=== PATIENT | female | born 1995 ===

== ENCOUNTER 2025-07-03 09:10 | Observation (INO) ==
--- NOTE | 2025-06-03 13:58 | PAT Medication Instructions ---
Medication Instructions Date of Service June 03, 2025 Home Medications bupropion HCl 300 mg 24 hr tablet, extended release (Wellbutrin XL) 300 mg PO QAM metformin 500 mg tablet 500 mg PO HS hydroxyzine HCl 10 mg tablet 10 mg PO BID PRN Anxiety levothyroxine 88 mcg tablet 88 mcg PO QAM phentermine 37.5 mg tablet 37.5 mg PO DAILY DO NOT take the morning of surgery hydroxyzine HCl 10 mg tablet 10 mg PO BID PRN Anxiety Take morning of surgery With a small sip of water, OTHERWISE NOTHING TO EAT OR DRINK AFTER MIDNIGHT: bupropion HCl 300 mg 24 hr tablet, extended release (Wellbutrin XL) 300 mg PO QAM levothyroxine 88 mcg tablet 88 mcg PO QAM Take evening before surgery metformin 500 mg tablet 500 mg PO HS hydroxyzine HCl 10 mg tablet 10 mg PO BID PRN Anxiety (if needed) STOP 5 days prior to surgery phentermine 37.5 mg tablet 37.5 mg PO DAILY Other Notes If you have any questions please call us at [phone] or [phone] or [phone] or [phone]
--- NOTE | 2025-06-11 12:42 | Anesthesiology Consultation ---
Date of Service June 11, 2025 Assessment & Plan (1) Encounter for pre-operative examination: Chart Review Chart Review: Acceptable Risk for Surgery and Patient seen in Pre Admission Testing - Check BSG AM DOS - Check test AM DOS Pt currently scheduled as 23 hours observation. If surgeon decides to change patient to Same Day Joint, patient would be acceptable risk for TKA, pending patient is motivated, has good support and surgeon's office completes [facility] Program preop requirements. Per PAT appt on 06/11/25, no recent illness/disease exposures, illness related symptoms, or recent illness/disease positive tests. Will leave to surgeon's discretion if preop Covid testing needed Teaching & Discussion Pre-Anesthesia Teaching/Discussion Notes: Instructed NPO after midnight before surgery,except medications with 15 cc of water. Medication instructions provided according to the PAT guidelines. History Surgery Operation Date: 07/03/25 12:00 Proposed Procedures p Robotic Assisted Left Total Knee Arthroplasty - Roly Lentz DO Operation Date: 07/03/25 13:00 Proposed Procedures p Robotic Assisted Left Total Knee Arthroplasty - Roly Lentz DO Height/Weight Height: 5 ft 3 in Weight: 83.2 kg Allergies Allergy/AdvReac Type Severity Reaction Status Date / Time Penicillins Allergy Unknown Hives Verified 06/02/25 08:27 sulfamethoxazole Allergy Unknown Hives Verified 06/02/25 08:27 [From Bactrim] trimethoprim [From Bactrim] Allergy Unknown Hives Verified 06/02/25 08:27 Medications Home Medications Medication Instructions Recorded Confirmed Last Taken bupropion HCl 300 mg 24 hr tablet, 300 mg PO QAM 04/24/25 06/02/25 Unknown extended release (Wellbutrin XL) metformin 500 mg tablet 500 mg PO HS 04/24/25 06/02/25 Unknown hydroxyzine HCl 10 mg tablet 10 mg PO BID PRN Anxiety 06/02/25 06/02/25 Unknown levothyroxine 88 mcg tablet 88 mcg PO QAM 06/02/25 06/02/25 Unknown phentermine 37.5 mg tablet 37.5 mg PO DAILY 06/02/25 06/02/25 Unknown Past Medical History Medical History (Updated 06/11/25 @ 12:55 by Bryanna Logan PA-C) Acid reflux occ/dietary controlled/no meds. Anxiety Depression History of anesthesia reaction - with epidural for childbirth "oxygen dipped" required supplemental oxygen for that time per pt (did have vaginal delivery) - no issues with surgeries (has not had any other epidurals) History of COVID-19 hx 2020 and maybe 2021 per pt. no hx hospitalization. no current issues Hypothyroidism Liver cyst per pt decreasing in size, monitored every 2 yrs. Last monitored 2022. Pre-diabetes Exercise / Class Metabolic Activity II 4-5 Yardwork/Stairs/Walk up hill (one flight of stairs - no chest pain or SOB ) Past Family History Family History Other No family history of adverse response to anesthesia Past Surgical History Surgical History History of reconstruction of anterior cruciate ligament tear left History of surgery had nerve block through pain managment , left knee. [place] teeth removed hx Past Anesthesia History No Hx of Anesthesia Complications (with exception to SOB/low oxygen with epidural with childbirth ) and No Family Hx of Anesthesia Complications History of PONV No Hx of PONV and Hx of Motion Sickness Social History Smoking Status: Never smoker Do You Dip or Chew Tobacco: No alcohol intake frequency: holidays/special occasions only Hx Substance Use: No substance use type: does not use Review of Systems - Occ snoring - no witnessed apnea - no hx of sleep study Patient denies chest pain, shortness of breath, dyspnea on exertion, cough, wheezing, palpitations. No hx of seizures, stroke, [place]. No hx of blood clots or blood transfusions Physical Exam Vital Signs VITALS BP 115/79 P 79 TEMP 98.0 SP02 98% RESP 16 Constitutional no acute distress ENMT Mouth: no TMJ clicking Thyromental Distance: > or= 3.5 Finger Breadths (3.5) Mallampati Class: III Neck neck extension not limited Respiratory normal respiratory effort; no respiratory distress Auscultation: lungs clear to auscultation bilaterally; no wheezes Cardiovascular Rate/Rhythm: regular rate and regular rhythm Heart Sounds: no murmur Vessels: no carotid bruit Musculoskeletal Spine: no pain with cervical ROM Extremities: extremities normal to inspection Psychiatric Orientation: alert Lab Results Anesthesia Preop Results Results Anesthesia Widget: WBC 5.83 K/ul (4.8-10.8) 06/11/25 Hgb 13.4 g/dl (12.0-16.0) 06/11/25 Hct 38.1 % (37.0-47.0) 06/11/25 Plt 296 K/uL (130-400) 06/11/25 Na 140 mmol/L (136-145) 06/11/25 K 3.6 mmol/L (3.5-5.1) 06/11/25 Cl 107 mmol/L (98-107) 06/11/25 CO2 24 mmol/L (21-32) 06/11/25 BUN 14 mg/dl (6-23) 06/11/25 Creat 0.64 mg/dl (0.6-1.2) 06/11/25 Glucose Level 104 mg/dl (70-99(Fasting)) H 06/11/25 PT 10.8 Seconds (9.0-12.0) 06/11/25 PTT 26 Seconds (21-31) 06/11/25 INR 1.0 (0.9-1.1) 06/11/25 HA1c 4.8 % (4.5-5.6) 06/11/25 Blood Type O Positive 06/11/25 Antibody Screen NEGATIVE 06/11/25 Testing Electrocardiogram Date: 06/11/25 NSR with sinus arrhythmia at 77bpm Normal EKG per cardio Chest X-Ray Date: 06/11/25 Findings: + NAD
--- NOTE | 2025-07-02 12:12 | History & Physical Report ---
Date of Service July 02, 2025 Assessment & Plan (1) Knee osteoarthritis: We will proceed with a left total knee arthroplasty. Postoperatively, she will be started on aspirin for DVT prophylaxis and kept overnight in the hospital for postop medical management. She plans to have occupational therapy at her house after discharge. History of Present Illness Chief Complaint: Osteoarthritis of the left knee. Primary Care Provider: NO PCP Bridgette is a pleasant 30-year-old female who has been dealing with chronic, increasing left knee pain. She initially tore her ACL about 5 years ago. She underwent an ACL reconstruction in 2000. She has not done well postoperatively. She has had progressive lateral compartmental arthritis. She has been treated by another provider. She has had multiple injections. Unfortunately, the injections are not helping. She is really struggling with the left knee. The valgus deformity is becoming worse. She has elected proceed with a left total knee arthroplasty. Allergies Allergy/AdvReac Type Severity Reaction Status Date / Time Penicillins Allergy Unknown Hives Verified 06/02/25 08:27 sulfamethoxazole Allergy Unknown Hives Verified 06/02/25 08:27 [From Bactrim] trimethoprim [From Bactrim] Allergy Unknown Hives Verified 06/02/25 08:27 Home Medications Medication Instructions Recorded Confirmed Type bupropion HCl 300 mg 24 hr tablet, 300 mg PO QAM 04/24/25 06/02/25 History extended release (Wellbutrin XL) metformin 500 mg tablet 500 mg PO HS 04/24/25 06/02/25 History hydroxyzine HCl 10 mg tablet 10 mg PO BID PRN Anxiety 06/02/25 06/02/25 History levothyroxine 88 mcg tablet 88 mcg PO QAM 06/02/25 06/02/25 History phentermine 37.5 mg tablet 37.5 mg PO DAILY 06/02/25 06/02/25 History sertraline 50 mg tablet (Zoloft) 50 mg PO DAILY 06/29/25 06/29/25 History Past Med/Surg History Problem List Encounter for pre-operative examination Knee osteoarthritis Medical History History of anesthesia reaction - with epidural for childbirth "oxygen dipped" required supplemental oxygen for that time per pt (did have vaginal delivery) - no issues with surgeries (has not had any other epidurals) Anxiety History of COVID-19 hx 2020 and maybe 2021 per pt. no hx hospitalization. no current issues Acid reflux occ/dietary controlled/no meds. Liver cyst per pt decreasing in size, monitored every 2 yrs. Last monitored 2022. Hypothyroidism Pre-diabetes Depression Surgical History History of surgery had nerve block through pain managment , left knee. [place] teeth removed hx History of reconstruction of anterior cruciate ligament tear left Family History Other No family history of adverse response to anesthesia Social History Smoking Status: Never smoker Do You Dip or Chew Tobacco: No; Hx Substance Use: No Preferred Language: Frisian Communication Ability: Effective Ultrasound Supervisor Required: No Beliefs That Will Affect Care: None Current Living Situation: Spouse and Family Feels Safe at Home: Yes Assistive Devices: Contacts and Glasses Review of Systems All systems reviewed & are unremarkable except as noted in HPI & below. Physical Exam On physical exam the left knee, she has slight valgus deformity. Tenderness palpation of the distal lateral femoral condyle and over the lateral joint line.. Constitutional WD/WN, vitals as above Eyes PERRL, conjunctivae normal, anicteric sclerae ENMT external ear and nose normal, oropharynx normal Neck trachea midline, no thyromegaly Respiratory normal respiratory effort Cardiovascular RRR, no murmur, no edema Gastrointestinal (Abdomen) normal bowel sounds, soft, nontender, no hepatosplenomegaly Psychiatric A+Ox3, euthymic affect Results & Data Results & Data Laboratory Results . Diagnostic Findings . PG Care Time/CCT Total # of Minutes Spent Total Time Spent with Patient: Total time spent is greater than 50% in coordination of care (as documented) at patient's floor/unit and/or counseling patient: Coding Level of Care Code None Diagnoses Knee osteoarthritis M17.9
[~2025-07-03 09:10] MED LIST: ROPIVACAINE 0.5% 5 MG/ML 30 ML VIAL ONE
[2025-07-03] MEDS ORDERED: PHENYLEPHRINE HCL 10 MG/ML VIAL ONE (09:18)
[2025-07-03] MEDS ORDERED: ONDANSETRON INJ 2 MG/ML 2 ML VIAL ONE (09:20)
[2025-07-03] MEDS ORDERED: PROPOFOL IV EMULSION 10 MG/ML 20 ML VIAL IV ONE ×6 (09:20→11:44)
[2025-07-03] MEDS ORDERED: MIDAZOLAM HCL 1 MG/ML 2ML VIAL ONE (09:20)
[2025-07-03] MEDS: LR 15ML/HR IV SCH (09:38)
[2025-07-03] MEDS: GABAPENTIN 900 MG DOSE PO SCH (09:38)
[2025-07-03] MEDS: dexAMETHasone**PF** 10 MG/ML VIAL IV SCH (09:38)
[2025-07-03] MEDS: LR 60ML/HR IV SCH (09:38)
[2025-07-03] MEDS: FAMOTIDINE 20 MG TAB PO SCH (09:39)
[2025-07-03] MEDS: ACETAMINOPHEN 500 MG TAB PO SCH ×2 (09:39→16:14)
--- NOTE | 2025-07-03 09:57 | History & Physical Bridge Note ---
Date of Service July 03, 2025 History & Physical Bridge Note I have examined the patient, reviewed the History & Physical and in the interval since the performance of the History & Physical I have noted the following changes of clinical significance: no changes noted
[2025-07-03] MEDS ORDERED: ONDANSETRON INJ 2 MG/ML 2 ML VIAL IV PRN ×2 (10:14→13:24)
[2025-07-03] MEDS ORDERED: ATROPINE SULFATE 0.1 MG/ML 10ML SYR IV PRN (10:14)
[2025-07-03] MEDS: TRANEXAMIC ACID 1,000 MG **IV Pre-op IV SCH (10:35)
[2025-07-03] MEDS: ORTHO JOINT ANESTHETIC ONE (11:22)
[2025-07-03] MEDS ORDERED: BUPIVACAINE 0.5 % 5 MG/1 ML PF 10ML VIAL ONE (11:44)
[2025-07-03] MEDS: ROPIV 0.5% 246mg, Ketorolac 30mg, EPINEPHrine 0.5mg in NSS INFIL SCH (11:54)
--- NOTE | 2025-07-03 11:58 | Operative Report ---
PG Post Operative Report Pre & Post Diagnosis Operation Date: 07/03/25 13:00 Preoperative diagnosis: Osteoarthritis of the left knee Postoperative diagnosis: Osteoarthritis of the left knee I identified the patient and participated in the time-out.: Yes Procedure Operation Date: 07/03/25 13:00 Procedure: Left total knee arthroplasty Surgeon Roly Lentz, DO Head Banquet Waiter/Waitress Glenn Yee PA-C Estimated Blood Loss 30 Findings Consistent with Post-Op Diagnosis Specimens Left femoral and tibial bone Description of Procedure Implants used: I used a Leatha Persona total knee arthroplasty system with a size 5 standard PS femur, C tibia, and a size 10 CPS polyethylene bearing. All components were press-fit in place. Bridgette arrived [facility] for the above procedure. She was seen in the preoperative holding area and the operative extremity was identified and signed. She was given a preoperative antibiotic, TXA, a spinal anesthetic and an adductor nerve block. She was taken back to the operating room and laid on the table in supine position. She was given basic sedation. The operative knee was then prepped and draped in sterile fashion. A timeout was done, and the patient and the operative extremity was properly identified. A midline incision was made directly over the patella. Dissection was taken down to the extensor mechanism. A medial parapatellar arthrotomy was used. The medial retinaculum was released and the fat pad was mostly excised. The knee was flexed and the ACL, PCL, and meniscus were removed. The alignment of the knee replacement was assisted with a [employer] robotic knee. The femoral array was pinned in the distal femur and the tibial array was pinned using a percutaneous technique in the upper shaft of the tibia. The robot was appropriately calibrated and the structure of the knee was mapped out. The components were then manipulated on the screen to account for any malalignment and to assist in gap balancing. Once I was happy with the placement of the components on the screen, a distal femoral cutting guide was brought in place. The distal femur was then resected. The femur measured to be a size 5. A 4-in-1 cutting block was then put into place by the robot and 2 peg holes were drilled. The 4-in-1 cutting block was then impacted into place and anterior, posterior, and chamfer cuts were made. The cutting block was then brought down to the tibia and pinned into place. The proximal tibia was then resected. The posterior aspect of the knee was then opened up and any additional meniscus fragments and osteophytes were removed. The tibia measured to be a size C. The tibial plate was then placed in the appropriate rotation and the tibia was drilled and punched. Trial components were then placed. A size 10 CPS polyethylene insert was then trialed. The knee was brought through a full range of motion and felt to be stable. Trial components were then removed. The surrounding soft tissues were injected with 100 cc of an orthopedic pain control cocktail. All components were then press-fit into place. The final polyethylene insert was then snapped into place. The tourniquet was deflated. Hemostasis was obtained. A dilute betadyne lavage was then done for 3 minutes. The joint was then irrigated with normal saline solution. The medial parapatellar arthrotomy was then closed with #1 Vicryl suture. The skin was closed with 2-0 Vicryl, 3-0V lock suture, and Migdalia Zipline. A soft compressive dressing was placed. She was then transferred to a hospital bed and taken to the postanesthesia care unit in stable condition. She tolerated the procedure well. Glenn Yee PA-C, was present for the entire procedure. He was critical for patient positioning, prepping, draping, retraction exposure, wound closure and application of sterile dressing. I attest to the content of the Intraoperative Record and any orders documented therein. Any exceptions are noted below.
--- NOTE | 2025-07-03 13:16 | XRay Report ---
XR knee LT 1 or 2V routine CLINICAL HISTORY: Surgical Post Op COMPARISON: 04/24/2025 FINDINGS: Left knee prosthesis shows no hardware complication. There is expected soft tissue gas. IMPRESSION: Unremarkable postoperative exam. ACT 112: Negative or not required by law. Electronically signed by: Osmani Vera M.D. 07/03/2025 1:15 PM
[2025-07-03] MEDS ORDERED: PHARMACY GLYCEMIC MGMT CONSULT PRN (13:24)
[2025-07-03] MEDS ORDERED: NALOXONE HCL 0.4 MG/1 ML VIAL/CARP IV PRN (13:24)
[2025-07-03] MEDS ORDERED: MAGNESIUM HYDROXIDE SUSP 30 ML UDC PO PRN (13:24)
[2025-07-03] MEDS ORDERED: METOCLOPRAMIDE HCL INJ 5 MG/ML 2 ML VIAL IV PRN (13:24)
[2025-07-03] MEDS ORDERED: HYDROmorphone INJ 0.5 MG/0.5 ML SYR IV PRN (13:24)
[2025-07-03] MEDS ORDERED: GLUCAGON FOR INJ 1 MG VIAL SQ PRN (14:00)
[2025-07-03] MEDS ORDERED: DEXTROSE 50% 50 ML SYRINGE IV PRN (14:00)
[2025-07-03] MEDS ORDERED: GLUCOSE 10 TAB/TUBE PO PRN (14:00)
[2025-07-03] MEDS ORDERED: CARBOHYDRATES FOR HYPOGLYCEMIA PO PRN (14:00)
[2025-07-03] MEDS ORDERED: GLUCOSE 40% GEL 15 GM TUBE PO PRN (14:00)
--- NOTE | 2025-07-03 14:16 | Anesthesiology Progress Note ---
Date of Service July 03, 2025 Anesthesia Post Procedure Vital Signs Vital Signs: Temp Pulse Pulse Resp BP Pulse Ox O2 Del Method 07/03/25 14:05 80 18 106/68 98 Room Air 07/03/25 13:50 84 18 113/75 98 Room Air 07/03/25 13:35 89 18 113/73 100 Room Air 07/03/25 13:20 36.4 C L 90 17 104/66 100 Room Air 07/03/25 13:05 68 17 109/62 100 Room Air 07/03/25 12:55 67 17 102/62 100 Room Air 07/03/25 12:45 88 18 110/70 94 Room Air 07/03/25 12:35 88 18 96/58 L 97 Oxymask 07/03/25 12:28 36.2 C L 72 16 96/62 L 100 Oxymask 07/03/25 09:33 36.5 C 78 20 108/65 99 Room Air O2 Flow Rate 07/03/25 14:05 07/03/25 13:50 07/03/25 13:35 07/03/25 13:20 07/03/25 13:05 07/03/25 12:55 07/03/25 12:45 07/03/25 12:35 10 07/03/25 12:28 10 07/03/25 09:33 Pain Intensity Left Leg: Pain Intensity: 6 Transfer of Care Handoff Completed per policy Notes Mental Status: alert / awake / arousable Patient Amnestic to Procedure: Yes Nausea / Vomiting: adequately controlled Pain: adequately controlled Airway Patency, RR, SpO2: stable & adequate BP & HR: stable & adequate Hydration State: stable & adequate Neuraxial Anesthesia: was administered and sensory block is resolving Anesthetic Complications: no major complications apparent
--- NOTE | 2025-07-03 14:39 | Pharmacy Report ---
Pharmacy Glycemic Short Note 2 - Date of Service July 03, 2025 - Glycemic Short BSG Results (Last 24 hours): 07/03/25 09:27 POC Glucose 91 OUTPATIENT ANTIDIABETIC REGIMEN: * metformin 500 mg po hs ASSESSMENT: * 30 year old s/p surgery, POD 0 - pharmacy consulted for glycemic management. Pre-diabetes per notes, only on metformin outpatient. Did receive IV steroid preoperatively. BSG only 91 mg/dL this AM - will utilize novolog only for now PLAN FOR INPATIENT GLYCEMIC CONTROL: * Hold outpatient oral diabetes medications * Basal insulin * Lantus - hold * Bolus insulin * NovoLog per scale ACHS or Q6hrs while NPO * Goal Range: Low 110 mg/dL - High 140 mg/dL * Correction Factor: 30 mg/dL/unit * Nutritional / Prandial insulin per carb ratio of 1 unit per -- grams CHO consumed
[2025-07-03] MEDS: SODIUM CHLORIDE 0.9% 1,000 ML IV SCH (16:05)
[2025-07-03] MEDS: KETOROLAC TROMETHAMINE 15 MG/ML VIAL IV SCH (16:14)
[2025-07-03] MEDS: INSULIN ASPART PER UNIT CHARGE SC SCH (16:15)
[2025-07-03] MEDS: DOCUSATE SODIUM 100 MG CAP PO SCH (21:23)
[2025-07-03] MEDS: SENNA 8.6 MG TAB PO SCH (21:23)
[2025-07-03] MEDS: ASPIRIN 81 MG ECTAB PO SCH (21:23)
[2025-07-04] MEDS: LEVOTHYROXINE SODIUM 88 MCG TABLET PO SCH (05:33)
[2025-07-04 07:43] VITALS: BP 100/68; PULSE 72; RESP 16; TEMP 97.7; O2SAT 99
--- NOTE | 2025-07-04 08:43 | Orthopedic Progress Note ---
Date of Service July 04, 2025 Assessment & Plan (1) Status post left knee replacement: Overall she is doing fairly well. She is not having much pain in the left knee. She will be seen by physical therapy today for ambulation and range of motion exercises. The nursing staff can change her dressing after physical therapy. She is on aspirin for DVT prophylaxis. She can be discharged to home later today. She will follow-up with orthopedics in 2 weeks. Tiny [place] was seen and examined at bedside this morning. Overall she is doing fairly well. She is not having much pain in the left knee. She is been up and ambulating to the bathroom. She has no complaints.. Review of Systems All systems reviewed & are unremarkable except as noted in HPI & below. Physical Exam On physical exam of the left knee, the dressing is clean and dry. Her leg is out full extension. She has active dorsiflexion and plantarflexion of her left ankle.. Results & Data Results & Data Laboratory Results . Diagnostic Findings Postoperative x-rays of the left knee show the prosthesis to be in anatomic alignment without any evidence of fracture, dislocation, or loosening.. PG Care Time/CCT Total # of Minutes Spent Total Time Spent with Patient: Total time spent is greater than 50% in coordination of care (as documented) at patient's floor/unit and/or counseling patient: Coding Level of Care Code 38446 Post Operative Follow-Up Diagnoses Status post left knee replacement Z96.652
[2025-07-04] MEDS: SERTRALINE HCL 50 MG TABLET PO SCH (09:17)
[2025-07-04] MEDS: MULTIVITAMIN TAB PO SCH (09:17)
== END 2025-07-04 11:57 | disposition home or self-care (01) ==
LOC: ASU 09:10 → PACUINP 09:10 → 3N 15:21